=== PATIENT | female | born 1950 | race Caucasian/White ===

== ENCOUNTER 2016-10-25 23:50 | Inpatient (IN) | payer SELFPAY ==
--- NOTE | ~2016-10-25 | DS ---
Discharge Summary [facility] [address] [place]. [address] NAME: LISS HODGSON : 52 STATUS : DIS IN PAT#: [id number] AGE: 65 ADM/REG DATE : 10/26/16 MR#: [id number] REPORT SERV DATE: 10/31/16 DICTATED BY: AJ BUCIO DATE: 10/28/16 REPORT STATUS : Draft TRANSCRIBED BY: MODL DATE: 10/28/16 ADMISSION DATE: 10/26/2016 DISCHARGE DATE: 10/28/2016 CONSULTING PHYSICIAN: Dr. Ramires, for outpatient GI Dr. David. FINAL DIAGNOSES: 1. Gastroparesis, improved. 2. History of Anastasiya fundoplication. 3. Coronary artery disease with history of bradycardia and tachycardia. 4. Hypertension. 5. Coronary artery disease. 6. Hypokalemia. 7. Hyponatremia. 8. Obesity. 9. Hypothyroidism. 10.Right kidney stone. DIAGNOSTIC DATA: Abdominal ultrasound showing stable borderline cardiomegaly, otherwise negative chest, 8 mm stone superimposed upon the lower pole of the right kidney, new from previous, positive gas, it is likely compatible with ileus, then the vomiting history, follow up films are recommended. HOSPITAL COURSE: Please refer to the H and P done by Dr. Bryant dated on 10/26/2016. Briefly, this is a 65-year-old female, who comes in with vomiting. The patient has a history of Anastasiya fundoplication and gastroparesis, and from time to time she gets this gastroparesis flare up. She was already warned about certain medications that might interfere with her heart. She said that she has been taking bisoprolol and for the last year her heart rate has been low, however, as she was having the symptoms for about a week, not taking medications for at least three days. She came in with a heart rate that is elevated. The patient was then admitted, given some hydration. She was found to have low potassium and sodium, and this was replaced and on discharge they were normal. She also was given Zofran which did not give her any significant side effect and her nausea and vomiting resolved. She is now able to eat eggs this breakfast and wanted to go home. Meanwhile, we restarted her on her medications and her tachycardia improved, in fact it is now bradycardic. Her blood pressure remained stable off the hydrochlorothiazide. We discussed with her about bringing down the bisoprolol from 5 to 2.5. Holding the hydrochlorothiazide and giving her some Zofran p.r.n. I warned her that the Zofran can cause QT prolongation, and is she is having severe symptoms that she cannot take her medications, the Zofran might be helpful, however, there might be a drug interaction between the Zofran and the bisoprolol, and she understands this. She will follow up with her PCP, Dr. Robin Kimball. Follow up with Dr. David as well. MEDICATIONS: She will be going home with the following medications aspirin 81 mg a day, bisoprolol down to 2.5 mg a day, levothyroxine 88 mcg a day, Prinivil 20 mg a day, Zantac 300 mg at bedtime, Mevacor 20 mg a day, Tylenol p.r.n. This has been explained to the Discharge Summary [address] [address] NAME: LISS HODGSON : 52 STATUS : DIS IN PAT#: [id number] AGE: 65 ADM/REG DATE : 10/26/16 MR#: [id number] REPORT SERV DATE: 10/31/16 DICTATED BY: AJ BUCIO DATE: 10/28/16 REPORT STATUS : Draft TRANSCRIBED BY: MORGAN DATE: 10/28/16 patient. TIME SPENT: 35 minutes. DICTATED BY: Mireille Shirley/MORGAN Aj Bucio M.D. / [id number] CC: Mireille Shirley M.D.
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
[2016-10-25 22:48] LABS: BASOPHILS 0.1 %; BASOPHILS ABSOLUTE 0.01 10/3/uL (0.0-0.16); EOSINOPHILS 0 %; HEMATOCRIT 43.1 % (36.0-48.0); HEMOGLOBIN 14.7 g/dL (12.0-16.0); IMMATURE GRANULOCYTES 0.4 %; IMMATURE GRANULOCYTES ABSOLUTE 0.07 10/3/uL (0.0-0.11); LYMPHOCYTES 9.6 %; LYMPHOCYTES ABSOLUTE 1.73 10/3/uL (0.67-4.30); MEAN CORPUSCULAR HEMOGLOB 30.9 pg (26.0-34.0); MEAN PLATELET VOLUME 10.6 fL (9.2-13.0); MONOCYTES 7.6 %; MONOCYTES ABSOLUTE 1.37 10/3/uL (0.21-1.20); NEUTROPHILS 82.3 %; NEUTROPHILS ABSOLUTE 14.77 10/3/uL (2.02-8.40); PLATELET COUNT 319 10/3/uL (150-400); RBC DISTRIBUTION WIDTH 12.8 % (12.0-16.0); RED CELL COUNT 4.75 10/6/uL (4.0-5.6)
[2016-10-25 22:53] LABS: ER CBC TAT 0 Hrs 13 Mins; MANUAL DIFF NO %; MEAN CORPUS HGB CONC 34.1 g/dL (32.0-36.0); MEAN CORPUSCULAR VOLUME 90.7 fL (80-100)
[2016-10-25 23:00] LABS: A/G RATIO 1.1 (0.7-1.9); ALBUMIN 4.1 G/DL (3.5-5.0); CHLORIDE, SERUM 102 MMOL/L (96-112); CO2 (CARBON DIOXIDE) 31 MMOL/L (24-34); CREATININE 1.18 MG/DL (0.55-1.02); GFR AFRICAN AMERICAN 56 ML/MIN (>=60); GFR NON AFRICAN AMERICAN 49 ML/MIN (>=60); GLOBULIN 3.9 G/DL (2.5-4.1); SGOT(AST) 16 U/L (5-40); SGPT(ALT) 24 U/L (5-65); TOTAL BILIRUBIN 0.5 MG/DL (0-1.2)
[2016-10-25 23:01] LABS: ALKALINE PHOSPHATASE 59 U/L (45-117); BUN (BLOOD UREA NITROGEN) 22 MG/DL (6-23); CALCIUM, SERUM 9.6 MG/DL (8.5-10.4); GLUCOSE, SERUM 166 MG/DL (60-99); SODIUM, SERUM 134 MMOL/L (135-148)
[2016-10-25 23:32] LABS: PLATELET ESTIMATE ADQ (ADEQUATE); RBC MORPHOLOGY NORM (NORMAL)
[~2016-10-25 23:50] MED LIST: ACID REDUCE; ACID REDUCER; ASAB PO; ATV.5 PO; BL CHROMIUM200 MCG PO; HYDROCHLOROT25 MG PO; LEVOTHROID50 MCG PO; LEVOTHYROXIN50 MCG PO; LEVOTHYROXIN88 MCG PO; LO-DOSE ASPIRIN81 M1 PO; MELATONIN5 M1 PO; METHOC500B PO; MEVACOR PO; MEVACOR40 MG PO; MULTIVIT/MIN PO; NORV5 PO; PR25 PO; PREV15 PO; PRILO PO; PRIN10 PO; PRIN20 PO; PROTONIX PO; RANITIDINE300 MG PO; REG PO; REG5 PO; REMERON30 MG PO; SUCR PO; WELCHOL 625 MG625 MG PO; ZANTAC300 MG PO; ZBETA10 PO; ZEBETA5 PO; ZESTRIL20 MG PO; ZIAC10 PO; ZOFRAN4 PO; ZOFRAN8 PO; [UNRECOGNIZED DRUG - OTHER]
[2016-10-26 02:47] LABS: ASCORBIC ACID (UR NOT ORDER) NEG (NEG); BILIRUBIN, URINE NEGATIVE (NEG); KETONE, URINE 20 MG/DL (NEG); LEUKOCYTE ESTERASE(NOT OR NEG (NEG); NITRITE (URINE) NEG (NEG); WBC (NOT ORDERED) (RFLEX) 1 (0-5)
[2016-10-26 07:52] LABS: POTASSIUM, SERUM 3.5 MMOL/L (3.5-5.3)
[2016-10-26] MEDS ORDERED: ZANTAC300 MG PO (08:34)
[2016-10-26] MEDS ORDERED: LEVOTHYROXIN88 MCG PO (08:34)
[2016-10-26] MEDS ORDERED: ZEBETA5 PO (08:34)
[2016-10-26] MEDS ORDERED: PRIN20 PO (08:35)
[2016-10-26] MEDS ORDERED: HCTZ25B PO (08:35)
[2016-10-26] MEDS ORDERED: TYLENOL PM PO (08:35)
[2016-10-26] MEDS ORDERED: MEVACOR PO (08:35)
[2016-10-26] MEDS ORDERED: [UNRECOGNIZED DRUG - REMARK] PO (08:35)
[2016-10-26] MEDS ORDERED: MURINE EYE DROPS OPH (08:36)
[2016-10-26] MEDS ORDERED: ASAB PO (08:36)
[2016-10-27 05:55] LABS: BASOPHILS 0.1 %; BASOPHILS ABSOLUTE 0.01 10/3/uL (0.0-0.16); EOSINOPHILS 0.2 %; EOSINOPHILS ABSOLUTE 0.02 10/3/uL (0.0-0.53); HEMOGLOBIN 12.5 g/dL (12.0-16.0); IMMATURE GRANULOCYTES 0.3 %; IMMATURE GRANULOCYTES ABSOLUTE 0.04 10/3/uL (0.0-0.11); LYMPHOCYTES 27.7 %; LYMPHOCYTES ABSOLUTE 3.24 10/3/uL (0.67-4.30); MEAN CORPUSCULAR HEMOGLOB 30.4 pg (26.0-34.0); MEAN PLATELET VOLUME 10.6 fL (9.2-13.0); MONOCYTES ABSOLUTE 1.05 10/3/uL (0.21-1.20); NEUTROPHILS 62.7 %; NEUTROPHILS ABSOLUTE 7.34 10/3/uL (2.02-8.40); PLATELET COUNT 278 10/3/uL (150-400); RBC DISTRIBUTION WIDTH 13.2 % (12.0-16.0); RED CELL COUNT 4.11 10/6/uL (4.0-5.6); WHITE BLOOD CELLS 11.7 10/3/uL (4.5-10.5)
[2016-10-27 05:57] LABS: HEMATOCRIT 38.7 % (36.0-48.0); MANUAL DIFF NO %; MEAN CORPUS HGB CONC 32.3 g/dL (32.0-36.0); MEAN CORPUSCULAR VOLUME 94.2 fL (80-100)
[2016-10-27 06:21] LABS: CHLORIDE, SERUM 104 MMOL/L (96-112); CO2 (CARBON DIOXIDE) 34 MMOL/L (24-34); CREATININE 1.06 MG/DL (0.55-1.02); GFR AFRICAN AMERICAN 64 ML/MIN (>=60); GFR NON AFRICAN AMERICAN 55 ML/MIN (>=60); POTASSIUM, SERUM 3.2 MMOL/L (3.5-5.3)
[2016-10-27 06:22] LABS: BUN (BLOOD UREA NITROGEN) 16 MG/DL (6-23); CALCIUM, SERUM 8.5 MG/DL (8.5-10.4); GLUCOSE, SERUM 113 MG/DL (60-99); SODIUM, SERUM 144 MMOL/L (135-148)
[2016-10-28 06:46] LABS: BASOPHILS 0.1 %; BASOPHILS ABSOLUTE 0.01 10/3/uL (0.0-0.16); EOSINOPHILS 1.1 %; HEMATOCRIT 35.2 % (36.0-48.0); HEMOGLOBIN 11.7 g/dL (12.0-16.0); IMMATURE GRANULOCYTES 0.2 %; IMMATURE GRANULOCYTES ABSOLUTE 0.02 10/3/uL (0.0-0.11); LYMPHOCYTES 38.6 %; LYMPHOCYTES ABSOLUTE 3.55 10/3/uL (0.67-4.30); MEAN CORPUS HGB CONC 33.2 g/dL (32.0-36.0); MEAN CORPUSCULAR VOLUME 93.4 fL (80-100); MEAN PLATELET VOLUME 10.6 fL (9.2-13.0); MONOCYTES 9.7 %; MONOCYTES ABSOLUTE 0.89 10/3/uL (0.21-1.20); NEUTROPHILS 50.3 %; NEUTROPHILS ABSOLUTE 4.63 10/3/uL (2.02-8.40); PLATELET COUNT 233 10/3/uL (150-400); RBC DISTRIBUTION WIDTH 13.2 % (12.0-16.0); RED CELL COUNT 3.77 10/6/uL (4.0-5.6); WHITE BLOOD CELLS 9.2 10/3/uL (4.5-10.5)
[2016-10-28 06:52] LABS: BUN (BLOOD UREA NITROGEN) 13 MG/DL (6-23); CALCIUM, SERUM 8.4 MG/DL (8.5-10.4); CHLORIDE, SERUM 106 MMOL/L (96-112); CO2 (CARBON DIOXIDE) 34 MMOL/L (24-34); CREATININE 1.06 MG/DL (0.55-1.02); GFR AFRICAN AMERICAN 64 ML/MIN (>=60); GFR NON AFRICAN AMERICAN 55 ML/MIN (>=60); GLUCOSE, SERUM 93 MG/DL (60-99); POTASSIUM, SERUM 3.5 MMOL/L (3.5-5.3); SODIUM, SERUM 143 MMOL/L (135-148)
[2016-10-28 06:53] LABS: MANUAL DIFF NO %
[2016-10-28] MEDS ORDERED: ZOFRAN4 PO (09:03)
== END 2016-10-28 09:49 | disposition home or self-care (01) | DRG 390 ==
LOC: ER 23:50 → 4SO 10-26 04:38
PROVIDERS: Hospitalist; Internal Medicine
DX: K56.7 Ileus, unspecified (principal); K31.84 Gastroparesis; E03.9 Hypothyroidism, unspecified; E87.6 Hypokalemia; K21.9 Gastro-esophageal reflux disease without esophagitis; Z88.5 Allergy status to narcotic agent; Z88.2 Allergy status to sulfonamides; Z88.8 Allergy status to other drugs, medicaments and biological substances; I25.10 Atherosclerotic heart disease of native coronary artery without angina pectoris; I73.9 Peripheral vascular disease, unspecified; Z87.11 Personal history of peptic ulcer disease; E66.9 Obesity, unspecified; Z68.35 Body mass index [BMI] 35.0-35.9, adult; N20.0 Calculus of kidney
CPT/HCPCS: 74022; 80048; 80053; 81001; 82962; 83690; 83735; 84132; 84443; 85025; 93005; 96374; 96375; 96376; 99285; A9270-GY; C9113; J0360; J1200; J2405